=== PATIENT | female | born 1945 | race Caucasian/White ===

== ENCOUNTER → 2023-04-30 | Outpatient (CLI) | payer MEDICARE, BC ==
--- NOTE | 2023-05-01 08:08 | US ---
EXAMINATION TYPE: US thyroid st tissue head/neck DATE OF EXAM: 04/30/2023 COMPARISON: NONE CLINICAL INDICATION: Female, 77 years old with history of E04.1 NONTOXIC SINGLE THYROID NODULE; Pt st ates a nodule was found of an outside CT GLAND SIZE: Right Lobe: 4.4 x 1.4 x 1.5 cm Overall Parenchyma: heterogenous Left Lobe: 4.4 x 1.6 x 1.6 cm Overall Parenchyma: heterogenous Isthmus Thickness: 0.3 cm NODULES RIGHT: # of nodules measured on right: 2 1. 0.5 X 0.5 x 0.3 cm, mid medial, TIRADS Score: 1 TIRADS Category 2: Composition: Mixed cystic and solid (1 point). Echogenicity: Anechoic (0 points). Shape: Wider than tall (0 points). Margin: Smooth (0 points). Echogenic foci: None or large comet-tail artifacts (0 points) Recommendation: No FNA 2. 0.7 X 0.7 x 0.5 cm, mid lateral, cystic or almost completely cystic, hypoechoic nodule, which is wider than tall, with ill-defined margins, without echogenic foci. TIRADS Score: 4 TIRADS Category 4: Composition: Solid or almost completely solid (2 points). Echogenicity: Hypoechoic (2 points). Shape: Wider than tall (0 points). Margin: Ill-defined (0 points). Echogenic foci: None or large comet-tail artifacts (0 points) Recommendation: If >1.5cm: FNA; If >1cm: Follow up at 1,2, 3,5 years LEFT: # of nodules measured on left: 1. 1.6 X 1.1 x 1.0 cm, mid lateral, TIRADS Score: 3 TIRADS Category 3: Composition: Solid or almost completely solid (2 points). Echogenicity: Hyperechoic or isoechoic (1 point). Shape: Wider than tall (0 points). Margin: Smooth (0 points). Echogenic foci: None or large comet-tail artifacts (0 points) Recommendation: If >2.5cm: FNA; If >1.5cm: Follow up at 1,3,5 years 2. 0.9 X 0.6 x 0.5 cm, lower mid, TIRADS Score: 2 TIRADS Category 2: Composition: Mixed cystic and solid (1 point). Echogenicity: Hyperechoic or isoechoic (1 point). Shape: Wider than tall (0 points). Margin: Smooth (0 points). Echogenic foci: None or large comet-tail artifacts (0 points) Recommendation: No FNA ISTHMUS: # of nodules measured in the isthmus: 0 Bilateral neck scanned, no evidence of lymphadenopathy. IMPRESSION: Bilateral thyroid nodules, #1 on the left meets criteria for follow-up in one year.
== END | disposition home or self-care (01) ==
LOC: RADUSWWP 16:09
PROVIDERS: ATTEND Otolaryngology
DX: E04.2 Nontoxic multinodular goiter (principal)
CPT/HCPCS: 76536

== ENCOUNTER 2023-05-20 08:53 | Day surgery (SDC) | payer MEDICARE, BC ==
[2023-05-19 10:35] VITALS: BMI 23.9
[~2023-05-20 08:53] MED LIST: LACTATED RINGERS 1,000 ML IV SCH
[2023-05-20 09:52] VITALS: TEMP 98.1
[2023-05-20] MEDS ORDERED: PROPOFOL 10 MG/ML 20 ML VIAL IV ONE (10:07)
--- NOTE | 2023-05-20 10:09 | P.GSHP ---
History of Present Illness H&P Date: 05/20/23 Chief Complaint: Abnormal stool study 77-year-old female here for colonoscopy. States she had an abnormal cologuard within the last year or so. No bowel complaints. No family history of colon cancer. 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-no symptoms-neurosurgeon aware of colonoscopy and ok'd to hold asa and plavix, tachycardia-take metoprolol tart, sinus infection w/ wheezing Mar 2023-followed ENT & tx w/ amoxicillin,fall of 2021 had very low sodium level and freq falls(stated unknown cause of low sodium)-uses walker History of Any Multi-Drug Resistant Organisms: None Reported Additional Past Surgical History / Comment(s): brain Aneurysm repair w/ mesh and coil Spring 2022,cervix cauterization Past Anesthesia/Blood Transfusion Reactions: No Reported Reaction Additional Past Anesthesia/Blood Transfusion Reaction / Comment(s): no hx blood transfusion Smoking Status: Current every day smoker - Past Family History Mother Family Medical History: No Reported History Father Family Medical History: Cancer, Myocardial Infarction ([place]) Additional Family Medical History / Comment(s): lung CA,[place] x2 Brother(s) Family Medical History: Diabetes Mellitus Additional Family Medical History / Comment(s): bleeding w/ stools-colon resection Sister(s) Family Medical History: Diabetes Mellitus Medications and Allergies Home Medications Medication Instructions Recorded Confirmed Type Aspirin EC [Ecotrin Low Dose] 81 mg PO DAILY 05/19/23 05/20/23 History Calcium Carbonate [Calcium] 1,200 mg PO HS 05/19/23 05/20/23 History Clopidogrel Bisulfate [Clopidogrel] 75 mg PO DAILY 05/19/23 05/20/23 History Denosumab [Prolia] 120 dose SQ Q180D 05/19/23 05/20/23 History Inulin/Chromium Picolinate [Fiber 1 tab PO DAILY 05/19/23 05/20/23 History Gummies Chew] Magnesium 500 mg PO HS 05/19/23 05/20/23 History Metoprolol Tartrate [Lopressor] 25 mg PO BID 05/19/23 05/20/23 History Multivit/Iron Sulf/Folic Acid 1 each PO DAILY 05/19/23 05/20/23 History [Multivitamin with Iron] Rosuvastatin Calcium 20 mg PO HS 05/19/23 05/20/23 History amLODIPine 10 mg PO QAM PRN 05/19/23 05/20/23 History Allergies Allergy/AdvReac Type Severity Reaction Status Date / Time No Known Allergies Allergy Verified 05/20/23 09:19 Surgical - Exam Vital Signs Temp Pulse Resp BP Pulse Ox 98.1 F 97 18 141/63 97 05/20/23 09:29 05/20/23 09:29 05/20/23 09:29 05/20/23 09:29 05/20/23 09:29 Physical exam: General: Well-developed, well-nourished HEENT: Normocephalic, sclerae nonicteric Abdomen: Nontender, nondistended Extremities: No edema Neuro: Alert and oriented Assessment and Plan (1) Abnormal stool test Narrative/Plan: Will proceed with colonoscopy at this time. Current Visit: Yes Status: Acute Code(s): R19.5 - OTHER FECAL ABNORMALITIES SNOMED Code(s): 772617059
--- NOTE | 2023-05-20 10:26 | P.PCN ---
Date of Procedure: 05/20/23 Procedure(s) Performed: PREOPERATIVE DIAGNOSIS: Abnormal stool test POSTOPERATIVE DIAGNOSIS: Diverticulosis PROCEDURE: Colonoscopy ANESTHESIA: MAC SURGEON: Donavon oHoks M.D. SPECIMENS: None ENDOSCOPIC PROCEDURE: The patient was placed on the endoscopy table in the left decubitus position. The Olympus colonoscope was inserted into the anus and passed under direct visualization to the base of the cecum. The appendiceal orifice was visualized. From that point the scope was slowly withdrawn inspecti ng all surfaces carefully. There were no neoplastic inflammatory or polypoid lesions throughout the cecum, ascending, transverse, descending, sigmoid and rectum. There was mild scattered diverticulosis noted. Digital rectal examination was normal. The patient was taken to the recovery room in stable condition per anesthesia guidelines. RECOMMENDATIONS: Resume diet. Repeat colonoscopy in 10 years.
[2023-05-20 10:55] VITALS: BP 93/55; PULSE 79; RESP 16
== END 2023-05-20 10:58 | disposition home or self-care (01) ==
LOC: ORWHC2ENDO 08:53
PROVIDERS: ATTEND Surgery
DX: K57.30 Diverticulosis of large intestine without perforation or abscess without bleeding (principal); I10 Essential (primary) hypertension; E78.5 Hyperlipidemia, unspecified; F17.200 Nicotine dependence, unspecified, uncomplicated; Z82.49 Family history of ischemic heart disease and other diseases of the circulatory system; Z80.1 Family history of malignant neoplasm of trachea, bronchus and lung; Z83.3 Family history of diabetes mellitus; Z79.02 Long term (current) use of antithrombotics/antiplatelets; Z79.899 Other long term (current) drug therapy
CPT/HCPCS: 45378; J2704

== ENCOUNTER → 2023-08-29 | Outpatient (CLI) | payer MEDICARE, BC ==
--- NOTE | 2023-08-29 21:09 | CTL ---
EXAMINATION TYPE: CT Low Dose Lung DATE OF EXAM: 08/29/2023 5:14 PM CLINICAL INDICATION:Female, 77 years old with history of Z12.2 ENCNTR SCREEN FOR MALIGNANT NEOPLASM F 17.210; personal h/o tobacco use x45 years , history of tobacco use. COMPARISON: None TECHNIQUE: Multiple axial non-contrast scans were obtained from approximately the lung apices through the upper abdomen. Coronal and sagittal reformatted images were obtained. Low dose technique was uti lized. CT DLP: 61.9 mGycm, Automated exposure control for dose reduction was used. CT Contrast: Contrast used: None Oral contrast used: None FINDINGS: ======== Lack of intravenous contrast and low dose technique limits the evaluation of the vascular and soft ti ssue structures. LUNGS: No evidence of pulmonary fibrosis. No evidence of focal consolidation, pneumothorax or pleural effusion. Mild emphysema changes throughout the lungs. Nodules: RUL: None. RML: None. RLL: None. LAY: None. LLL: None. AIRWAY: Patent and unremarkable. HEART: Size within normal limits. Moderate to severe coronary artery calcifications. Aortic valve felix flet calcifications.2 MEDIASTINUM: No gross evidence of adenopathy. VASCULATURE: No aortic aneurysm. MUSCULOSKELETAL: No acute osseous abnormalities SOFT TISSUES/LYMPH NODES: Posterior back probable simultaneous lesions largest measuring 32 x 18 mm. LOWER NECK: No significant findings. UPPER ABDOMEN: Scattered colonic diverticula. IMPRESSION: 1. No pulmonary nodules. 2. Moderate severe coronary artery atherosclerosis. 3. Mild emphysema. 4. Posterior upper back lesions possibly related to sebaceous cyst. Correlate with dermatologic eval uation and/or ultrasound. CT LUNG RAD AND CT CHEST RECOMMENDATION: Lung-Rad 1 Negative: Continue annual screening with LDCT in 12 months. S Modifier (other clinically significant findings): Moderate severe coronary artery atherosclerosis. Recommend smoking cessation (if current smoker), or continuation of smoking cessation (if prior smoke r). Annual screening for lung cancer with low-dose computed tomography is recommended in adults ages 55 to 77 years who have a 30 pack-year smoking history and currently smoke or have quit within the pa st 15 years. Screening should be discontinued once a person has not smoked for 15 years or develops a health problem that substantially limits life expectancy or the ability or willingness to have curat izaiah lung surgery. Lung rads 2021 [email or web address]
== END | disposition home or self-care (01) ==
LOC: RADCTMAIN 15:48
PROVIDERS: ATTEND Family Medicine
DX: Z12.2 Encounter for screening for malignant neoplasm of respiratory organs (principal); J44.9 Chronic obstructive pulmonary disease, unspecified; I25.10 Atherosclerotic heart disease of native coronary artery without angina pectoris; F17.210 Nicotine dependence, cigarettes, uncomplicated
CPT/HCPCS: 71271

== ENCOUNTER → 2024-01-03 | Outpatient (CLI) | payer MEDICARE, BC ==
--- NOTE | 2024-01-03 16:15 | MR ---
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 Specialized thin s equences were obtained through the internal auditory canals. Pre-and post gadolinium sequences were obtained. MR contrast: IV Contrast: 6 cc Gadavist FINDINGS: Susceptibility artifact from vascular clip present. Redemonstration of measuring up to 19 x 17mm with thin rim of enhancement on postcontrast imaging and central nonenhancement. The pate-white junctions, ventricular system, and cisterns appear unremarkable. Scattered foci of h igh T2 signal intensity are seen within the periventricular white matter. Midline structures show no abnormality. Diffusion-weighted imaging shows no evidence of restricted diffusion. The susceptibility weighted images do not reveal any evidence for micro-hemorrhage. The bone marrow signal is within normal limits. Paranasal sinuses and mastoid air cells: Mild scattered paranasal sinus disease. Visualized orbits: Orbital contents are intact. After administration of gadolinium, no abnormal enhancement is seen. The internal auditory canal sequences demonstrate no significant irregularity. The 7th cranial nerve s, 8 cranial nerves, and cerebellar pontine angles appear unremarkable. After the administration félix olinium, no abnormal enhancement is seen within the internal auditory canals. Vascular loop: None. IMPRESSION: 1. Aneurysm clips present with susceptibility artifact. Evaluation is slightly limited. There is lar ge suspected aneurysm with central calcification. There is a thin rim of enhancement around this low signal area suspected calcified area. Findings suggest incomplete occlusion of the neck of the aneury sm. 2. No evidence of intracranial mass nor acute/subacute CVA. 3. No evidence of internal auditory canal abnormality. 4. Nonspecific white matter changes, likely secondary to small vessel ischemic disease.
== END | disposition home or self-care (01) ==
LOC: RADMRIMAIN 10:16
PROVIDERS: ATTEND Otolaryngology
DX: H93.3X9 Disorders of unspecified acoustic nerve (principal); H93.12 Tinnitus, left ear; H91.92 Unspecified hearing loss, left ear; I71.9 Aortic aneurysm of unspecified site, without rupture; R44.0 Auditory hallucinations
CPT/HCPCS: 70553; A9585